=== PATIENT | female | born 1985 | race African-American/Black ===

== ENCOUNTER 2021-10-15 18:49 | Emergency (ER) | payer OTHER ==
[~2021-10-15] VITALS: Ht 162.6 cm; Wt 91.9 kg
== END 2021-10-15 22:11 | disposition home or self-care (01) ==
LOC: ED 18:49
DX: O99.351 Diseases of the nervous system complicating pregnancy, first trimester (principal); G57.02 Lesion of sciatic nerve, left lower limb; Z3A.13 13 weeks gestation of pregnancy
CPT/HCPCS: 36415; 80053; 81001; 85025; 99283; A9270